=== PATIENT | male | born 1975 | race Two or more races ===

== ENCOUNTER 2017-11-17 18:40 | Emergency (ER) | payer OTHER ==
[2017-11-17 18:50] VITALS: BP 102/83
[2017-11-17] MEDS ORDERED: PROPARACAINE 0.5% 15 ML OPHT DROP OP ONE (18:54)
[2017-11-17] MEDS ORDERED: FLUORESCEIN SODIUM 1 MG STRIP OP ONE (18:57)
[2017-11-17] MEDS ORDERED: OFLOXACIN 0.3% SOLN PREPACK OPHT.BTL TAKEHOME ONE (19:00)
--- NOTE | 2017-11-17 19:04 | EDPHY ---
H & P Stated Complaint: possible metal in L eye Time Seen by Provider: 11/17/17 18:53 HPI/ROS: CHIEF COMPLAINT: Metal in eye HISTORY OF PRESENT ILLNESS: Patient is a 42-year-old [place]-speaking man who comes to the emergency department complaining of a foreign body sensation in his left eye. He states that about a half an hour prior to arrival he was drilling on metal a felt a piece of metal go into his eye. He does not wear glasses or contacts. He states that his visual acuity is normal but has some foreign body sensation. However his visual acuity is 20/100 in that eye here at triage. Severity: Moderate Modifying factors: None REVIEW OF SYSTEMS: Constitutional: denies: chills, fever, recent illness, recent injury EENTM: See HPI Respiratory: denies: cough, shortness of breath Cardiac: denies: chest pain, irregular heart rate, lightheadedness, palpitations Gastrointestinal/Abdominal: denies: abdominal pain, diarrhea, nausea, vomiting, blood streaked stools Genitourinary: denies: dysuria, frequency, hematuria, pain Musculoskeletal: denies: joint pain, muscle pain Skin: denies: lesions, rash, jaundice, bruising Neurological: denies: headache, numbness, paresthesia, tingling, dizziness, weakness Hematologic/Lymphatic: denies: blood clots, easy bleeding, easy bruising Immunologic/allergic: denies: HIV/AIDS, transplant 10 systems reviewed and negative except as noted EXAM: GENERAL: Well-appearing, well-nourished and in no acute distress. HEAD: Atraumatic, normocephalic. EYES: Pupils equal round and reactive to light, extraocular movements intact, sclera anicteric, conjunctiva are normal. Large corneal abrasions seen through slit-lamp. Stained with fluorescein, negative Luis Manuel sign, no visible foreign body currently. ENT: TMs normal, nares patent, oropharynx clear without exudates. Moist mucous membranes. NECK: Normal range of motion, supple without lymphadenopathy or JVD. LUNGS: Breath sounds clear to auscultation bilaterally and equal. No wheezes rales or rhonchi. HEART: Regular rate and rhythm without murmurs, rubs or gallops. ABDOMEN: Soft, nontender, normoactive bowel sounds. No guarding, no rebound. No masses appreciated. BACK: No CVA tenderness, no spinal tenderness, step-offs or deformities EXTREMITIES: Normal range of motion, no pitting or edema. No clubbing or cyanosis. NEUROLOGICAL: Cranial nerves II through XII grossly intact. Normal speech, normal gait. 5/5 strength, normal movement in all extremities, normal sensation , normal reflexes PSYCH: Normal mood, normal affect. SKIN: Warm, dry, normal turgor, no visible rashes or lesions. 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) - Personal History Current Tetanus/Diphtheria Vaccine: Yes Current Tetanus Diphtheria and Acellular Pertussis (TDAP): Yes - Medical/Surgical History Hx Asthma: No Hx Chronic Respiratory Disease: No Hx Diabetes: No Hx Cardiac Disease: No Hx Renal Disease: No Hx Cirrhosis: No Hx Alcoholism: No Hx HIV/AIDS: No Hx Splenectomy or Spleen Trauma: No Other PMH: denies - Family History Significant Family History: No pertinent family hx - Social History Smoking Status: Never smoked Alcohol Use: Sober Drug Use: None Constitutional: Initial Vital Signs Temperature (C) 36.8 C 11/17/17 18:48 Heart Rate 62 11/17/17 18:48 Respiratory Rate 16 11/17/17 18:48 Blood Pressure 102/83 H 11/17/17 18:48 O2 Sat (%) 98 11/17/17 18:48 O2 Delivery Mode Room Air Allergies/Adverse Reactions: No Known Allergies Allergy (Unverified 11/17/17 18:48) Home Medications: Medication Instructions Recorded NK [No Known Home Meds] 11/17/17 Medical Decision Making ED Course/Re-evaluation: The patient has a corneal abrasion. Will start him on Ocuflox and have him follow up with Ophthalmology within the next few days because it is in the central visual axis. He understands this plan. We discussed safety glasses at work. Differential Diagnosis: Partial list of the Differential diagnosis considered include but were not limited to; corneal abrasion, foreign body and although unlikely based on the history and physical exam, I also considered perforation, glaucoma, rust stain. I discussed these differential diagnoses and the plan with the patient as well as the usual and expected course. The patient understands that the diagnosis is provisional and that in medicine we are not always correct and that further workup is often warranted. Usual and customary warnings were given. All of the patient's questions were answered. The patient was instructed to return to the emergency department should the symptoms at all worsen or return, otherwise to followup with the physician as we discussed. - Data Points Medications Given: Discontinued Medications Ofloxacin (Ocuflox 0.3% Opht Drops Prepack) 1 btl TAKEHOME EDNOW ONE Stop: 11/17/17 19:01 Last Admin: 11/17/17 19:21 Dose: 1 btl Proparacaine HCl (Alcaine 0.5%) 1 drops OP EDNOW ONE Stop: 11/17/17 18:55 Last Admin: 11/17/17 18:58 Dose: Not Given Departure - Departure Disposition: Home, Routine, Self-Care Clinical Impression: Cornea abrasion Qualifiers: Encounter type: initial encounter Laterality: left Qualified Code(s): S05.02XA - Injury of conjunctiva and corneal abrasion without foreign body, left eye, initial encounter Condition: Fair Instructions: Ofloxacin (Into the eye), Corneal Abrasion (ED) Referrals: Sarah Lainez MD [Medical Doctor] - 2-3 days, call for appt. Print Language: [place]
== END 2017-11-17 19:23 | disposition home or self-care (01) ==
DX: S05.02XA Injury of conjunctiva and corneal abrasion without foreign body, left eye, initial encounter (principal); W20.8XXA Other cause of strike by thrown, projected or falling object, initial encounter; Y93.H9 Activity, other involving exterior property and land maintenance, building and construction; Y99.0 Civilian activity done for income or pay